=== PATIENT | female | born 1955 | race Caucasian/White ===

== ENCOUNTER → 2019-10-09 | Day surgery (SDC) | payer MEDICARE ==
--- NOTE | 2019-10-08 14:40 | NUR ---
Checked patient temperature via skin probe: 97.0F. Patient denies being out of the country or out of state in the last 14 days. Patient denies being around any one who has been out of the country or out of state in the last 14 days. Patient denies fever, cough, or shortness of breath in the last 14 days.
[2019-10-08 15:36] LABS: BASOPHILS # (AUTO) 0.1 (0.0-0.1); BASOPHILS % 0.9 % (0.0-1.0); EOSINOPHILS # (AUTO) 0.3 (0.0-0.4); EOSINOPHILS % 3.4 % (0.0-6.0); HEMATOCRIT 42.4 % (34.2-44.1); HEMOGLOBIN 13.2 g/dL (12.0-16.0); LYMPHOCYTES # (AUTO) 2.2 (1.0-3.2); LYMPHOCYTES % 26.1 % (18.0-39.1); MEAN CORPUSCULAR HEMOGLOBIN 31.9 pg (28-32); MEAN CORPUSCULAR HGB CONC 31.1 g/dL (31-35); MEAN CORPUSCULAR VOLUME 102.4 fL (81-99); MONOCYTES # (AUTO) 0.6 (0.2-0.8); MONOCYTES % 6.5 % (4.4-11.3); NEUTROPHILS # (AUTO) 5.4 (2.1-6.9); NEUTROPHILS % 62.9 % (38.7-80.0); PLATELET COUNT 230 x10e3/uL (140-360); RED BLOOD COUNT 4.14 x10e6/uL (3.6-5.1); RED CELL DISTRIBUTION WIDTH 12.6 % (11.7-14.4)
[2019-10-08 15:40] LABS: INR 0.95; PROTHROMBIN TIME 13.2 seconds (11.9-14.5)
[2019-10-08 15:52] LABS: ANION GAP 15.9 mmol/L (8-16); CALCIUM 9.4 mg/dL (8.4-10.2); CREATININE, SERUM 1.78 mg/dL (0.57-1.11); POTASSIUM 4.9 mmol/L (3.5-5.1)
--- NOTE | 2019-10-08 16:36 | NUR ---
Dr. Cespedes notified of creatinine 1.78, eGFR 29 and abnormal EKG. No new orders at this time.
[~2019-10-09] VITALS: Ht 156.8 cm; Wt 101.2 kg
[2019-10-09] VITALS (7 sets, daily range): BP systolic 80–147; BP diastolic 70–78
[~2019-10-09] MED LIST: AMIODARONE HCL200 MG PO; ASPIRIN325 MG PO; BACITRACIN 50,000 UNIT VIAL ONE; BENICAR20 MG PO; CEFAZOLIN SOD 1 GM VIAL ONE; FENTANYL CITRATE/PF 100MCG/2 ML INJ ONE; LIDOCAINE HCL 2% LOCAL 20 ML VIAL ONE; METOPROLOL SUCC50 MG PO; MIDAZOLAM HCL 2 MG/2 ML VIAL ONE; PANTOPRAZOLE SO40 MG PO; PRAVASTATIN SOD40 MG PO; SODIUM CHLORIDE 0.9% 1000ML 2,000 ML ONE; SODIUM CHLORIDE 0.9% 500ML 500 ML ONE; SODIUM CHLORIDE 0.9% 50ML 50 ML ONE; SPIRONOLACTONE25 MG PO; VANCOMYCIN 1GM/NS 250 ML 250 ML ONE
--- NOTE | 2019-10-09 10:22 | NUR ---
1022 am RECEIVING NOTE [facility]ASITOLOG[facility] TEACH[facility] REC[facility]ERY DEPT............................................................... Bedside report received from JOSEPH Concepcion. Identifierx2. Alert oriented and appropriate, PERRLA, respirations even and unlabored to room air. Pulses x4 extremities equal and strong. Pedal pulses PT/DP X4 and marked. Cap fill brisk < 3 sec. Skin warm and dry integrity appears D/I. IV 20g to saline lock, presents healthy w/o s/s of infiltration or complaint. Abdomen soft and supple. pt offered toileting, denies need to urinate or defecate. No personal affects with patient. No family at bedside. Pt verbalizes understanding of POC. Currently w/o complaint of pain or need. Patient ds/rn
--- NOTE | 2019-10-09 10:45 | NUR ---
1045 Addendum: 10/09/19 at 1358 by Kalee Gilmore RN 1045 documentation error
--- NOTE | 2019-10-09 11:01 | Operative Report ---
DATE OF PROCEDURE: 10/09/2019 SURGEON: Alexander Harrington MD PREPROCEDURE DIAGNOSES: 1. 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 2. Worsening congestive heart failure, class 3. 3. Left bundle branch block. 4. Presence of dual-chamber defibrillator in place with worsening symptoms. POSTPROCEDURE DIAGNOSES: 1. 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 2. Worsening congestive heart failure, class 3. 3. Left bundle branch block. 4. Presence of dual-chamber defibrillator in place with worsening symptoms. ESTIMATED BLOOD LOSS: 10 mL. COMPLICATIONS: None. PROCEDURES PERFORMED: 1. Upgrade to biventricular cardiac defibrillator. 2. Moderate sedation. Moderate conscious sedation was provided under my direct supervision by sedation trained nurse. Sedation approximate time 40 minutes. Versed and fentanyl. There were no complications. See sedation form for details. REASON TO PERFORM PROCEDURE: The patient has had progressive worsening symptoms. She had a nuclear stress test demonstrating ejection fraction 35-40% that is worsening compared to before. Also, her symptoms have worsened with shortness of breath at rest. Also, she has developed a left bundle-branch block over the last months. Despite being the current pandemia, this is considered an urgent procedure to avoid further harm to the patient and potential worsening congestive heart failure and cardiac complications and , also to prevent further hospitalizations. She will benefit from [facility]OT[facility] C[facility] MANAGER as soon as possible. DESCRIPTION OF PROCEDURE: After informed consent was obtained, the patient was brought to the electrophysiology laboratory in a fasting, nonsedated state. The area over her chest was prepped and draped in the usual sterile fashion. Moderate sedation and prophylactic antibiotics were given. 1% lidocaine was used as local anesthetic and a 3 cm skin incision was made in the left subclavicular area. Electrocautery sharp and blunt dissection were used to bridge the previous device. This device was freed out of the pocket. Vascular access was obtained x1 in the left axillary vein using modified Seldinger technique under fluoroscopy guidance. No venogram was performed due to elevated creatinine. A 9-Sami sheath was placed. Coronary sinus was cannulated using AL2 catheter and Randolph wire. Coronary sinus angiogram demonstrated a good posterolateral branch. We used a total of 7 mL of contrast. The lead was advanced there. The thresholds there were 2. No phrenic stimulation. The sheath was removed from the body. Leads were secured to fascia using Ethibond. Pocket was irrigated with antibiotic solution using the pulse ict sales assistant. Hemostasis was meticulous. Leads connected to the device including the old right ventricular and right atrial leads. A new device system placed in the pocket. We used an antibiotic powder to the pocket. Incision was closed using absorbable sutures and Dermabond. The patient tolerated the procedure well. Procedure was then complete. SUMMARY OF HARDWARE IMPLANTED: The new defibrillator is a [employer], serial #[id number]. The left ventricular lead is a [employer], [id number]. The old right atrial and right ventricular leads are [employer], normal function. IMPRESSION: Successful upgrade to biventricular cardiac defibrillator via left axillary vein. PLAN: 1. Routine postop monitoring on telemetry bed. 2. Chest x-ray. 3. Follow up in 1-2 weeks. MD ANGELIQUE Cardenas/MODL /[id number]
--- NOTE | 2019-10-09 11:30 | NUR ---
1669 Education by Burak ybarra. CXCR done ds/rn
--- NOTE | 2019-10-09 12:17 | Diagnostic Imaging Report ---
EXAMINATION: CHEST SINGLE (PORTABLE) INDICATION: Postprocedural COMPARISON: None FINDINGS: LINES/TUBES:Left chest AICD. EKG leads overlie the chest. LUNGS:The lungs are moderately inflated. No focal consolidation or pulmonary edema. PLEURA:No pleural effusion or pneumothorax. MEDIASTINUM:The cardiomediastinal silhouette appears normal in size and shape. BONES/SOFT TISSUES:No acute osseous injury. ABDOMEN:No free air under the diaphragm. IMPRESSION: No pneumothorax. Signed by: Jonathan Mercer MD on 10/09/2019 12:14 PM
--- NOTE | 2019-10-09 13:00 | NUR ---
1300pm [facility] RECOV[facility] DISCHARGE NURSING NOTE Pt meets DC criteria. Skin assessed for s/s of complication and presence of hematoma. Skin warm, dry, no discolor, and pulses present. IV removed from rt hand. Distal tip appears intact. VS WNL. Pt denies pain, sob, or need at this time. Family her for pickup. Review of discharge paperwork and follow up instructions. verbalized understanding. Pt to wheelchair and transported to front of hospital. Transferred to private vehicle under own strength w/o incident with DC paperwork in hand. home console given to pt per rep and prescription in hand aware or importance of f/o care.-yovanny/rn
== END | disposition home or self-care (01) ==
LOC: CATH LAB 07:18
PROVIDERS: ATTEND Internal Medicine
DX: I42.8 Other cardiomyopathies (principal); I44.7 Left bundle-branch block, unspecified; I11.0 Hypertensive heart disease with heart failure; I50.32 Chronic diastolic (congestive) heart failure; Z95.810 Presence of automatic (implantable) cardiac defibrillator; Z01.810 Encounter for preprocedural cardiovascular examination; Z01.812 Encounter for preprocedural laboratory examination; Z79.82 Long term (current) use of aspirin
CPT/HCPCS: 33225; 33264; 36415; 71045; 80048; 85025; 85610; 93005; C1882; C1887; C1900; J0690; J2001; J2250; J3010; J3370; J7030; J7040; 33224; 99152; 99153